=== PATIENT | male | born 1960 | race Caucasian/White ===

== ENCOUNTER 2021-05-04 15:47 | Emergency (ER) | payer BC ==
[2021-05-04] MEDS ORDERED: Lidocaine 2% 20 ML MDV INFILT ONE (15:48)
[2021-05-04] MEDS: Bacitracin Oint 1 GM U/D Packet TOP ONE (17:00)
[2021-05-04] MEDS: Diphtheria,Pertussis(Acell),Tetanus Vaccine 0.5 ML Syringe IM ONE (17:00)
[2021-05-04] MEDS: Diphtheria,Pertussis(Acell),Tetanus Vaccine 0.5 ML Syringe ONE (17:01)
== END 2021-05-04 17:15 | disposition home or self-care (01) ==
LOC: FB.ED 15:47
DX: S61.217A Laceration without foreign body of left little finger without damage to nail, initial encounter (principal); E78.00 Pure hypercholesterolemia, unspecified; I10 Essential (primary) hypertension; Z23 Encounter for immunization; Z91.030 Bee allergy status; W26.8XXA Contact with other sharp object(s), not elsewhere classified, initial encounter; Y92.009 Unspecified place in unspecified non-institutional (private) residence as the place of occurrence of the external cause
CPT/HCPCS: 12002; 90471; 90715; 99282; 99282-25